=== PATIENT | female | born 1990 | race Asian ===

== ENCOUNTER 2021-06-06 07:39 | Emergency (ER) | payer BC ==
[~2021-06-06] VITALS: Ht 160 cm; Wt 81.6 kg
[2021-06-06 07:47] VITALS: TEMP 100.7
[2021-06-06 08:33] LABS: PLATELET COUNT 203 K/uL (152-353)
[2021-06-06 08:42] LABS: POTASSIUM 3.7 mmol/L (3.6-5.2)
[2021-06-06 09:38] VITALS: BP 122/79
== END 2021-06-06 09:38 | disposition home or self-care (01) ==
LOC: ED 07:39
PROVIDERS: Emergency Medicine
DX: B34.9 Viral infection, unspecified (principal); U07.1 COVID-19; I10 Essential (primary) hypertension; R51.9 Headache, unspecified; F17.210 Nicotine dependence, cigarettes, uncomplicated
CPT/HCPCS: 80048; 85027; 87635; 99283; U0003